=== PATIENT | male | born 1985 | race Caucasian/White ===

== ENCOUNTER 2018-01-01 03:50 | Emergency (ER) | payer MEDICAID ==
[~2018-01-01] VITALS: Ht 172.7 cm; Wt 75.0 kg
[2018-01-01 04:00] VITALS: BP 112/84
== END 2018-01-01 08:02 | disposition left against medical advice (07) ==
LOC: ER 03:50
DX: Z53.21 Procedure and treatment not carried out due to patient leaving prior to being seen by health care provider (principal)